=== PATIENT | female | born 1965 | race Caucasian/White ===

== ENCOUNTER → 2017-07-23 | Outpatient (CLI) | payer OTHER ==
--- NOTE | 2017-07-23 16:02 | KCIC ---
LUMBAR SPINE MIN 4V Clinical Indication: Severe lower back pain radiating down right leg x1 week. No known injury. Comparison: Two-view chest October 10, 2016. Findings: AP, bilateral oblique, lateral, and coned lumbosacral lateral views. Counting from above on two-view chest, there are 6 lumbar type vertebral bodies. The inferior most lumbar type vertebral body will be referred to as L6. There is no loss of vertebral body height. Visualized pelvic bones intact. There is motion artifact on the right oblique view. There is left pars defect of L6. Narrowing of L6/S1 disc space. There is grade 1 anterolisthesis of L6 on S1. The vertebral body alignment is otherwise maintained. IMPRESSION: 1. 6 lumbar type vertebral bodies. 2. Left pars defect of L6 and grade 1 anterolisthesis of L6 on S1. 3. No compression fracture. Electronically signed by: Gus Deleon MD (07/23/2017 3:58 PM) [id number]
== END | disposition home or self-care (01) ==
LOC: KCIC 15:09
PROVIDERS: ATTEND Physician Assistant
DX: M54.5 Low back pain (principal)
CPT/HCPCS: 72110

== ENCOUNTER → 2017-08-07 | Outpatient (CLI) | payer OTHER ==
--- NOTE | 2017-08-07 15:35 | KCIC ---
EXAMINATION: Magnetic resonance imaging (MRI) of the lumbar spine without contrast August 07, 2017 HISTORY: Low back pain. Possible radiculopathy. TECHNIQUE: Multiplanar multi-weighted MRI of the lumbar spine was performed without intravenous contrast using the standard lumbar spine protocol. Contrast information: None administered. COMPARISON: None available. FINDINGS: There is minimal anterolisthesis of L5 on S1. Osseous hemangiomas are identified at L2, L4 on L5. Vertebral bodies demonstrate normal signal intensity on all sequences. There are no compression fractures. The conus medullaris terminates at the level of T12-L1. The distal spinal cord signal intensity is normal. There is disc desiccation at L3-L4, L4-L5 and L5-S1. Annular fissures are identified at these levels. Limited views of the abdomen and pelvis show no soft tissue abnormality. The aorta is normal. L1-L2: The disc is normal in configuration. There is mild facet arthropathy. There is no neuroforaminal stenosis. There is no spinal canal stenosis. L2-L3: The disc is normal in configuration. There is mild facet arthropathy. There is no neuroforaminal stenosis. There is no spinal canal stenosis. L3-L4: There is mild circumferential disc bulge. There is moderate facet arthropathy. There is mild right and [id number] left neuroforaminal stenosis. There is no spinal canal stenosis. L4-L5: There is mild circumferential disc bulge with central disc protrusion. There is moderate facet arthropathy. There is moderate neuroforaminal stenosis. There is no spinal canal stenosis. L5-S1: Mild circumferential disc bulge. There is vacuum disc phenomenon at this level. There is severe facet arthropathy. There is kvzy-zw-ecuaefza neuroforaminal stenosis. There is no spinal canal stenosis. IMPRESSION: Mild degenerative changes of the lumbar spine as described in detail above. Electronically signed by: Blaire Calero MD (08/07/2017 3:31 PM) [facility]
== END | disposition home or self-care (01) ==
LOC: KCIC MRI 14:38
PROVIDERS: ATTEND Physician Assistant
DX: M54.16 Radiculopathy, lumbar region (principal); M47.896 Other spondylosis, lumbar region
CPT/HCPCS: 72148

== ENCOUNTER → 2018-03-11 | Outpatient (CLI) | payer OTHER | END | disposition home or self-care (01) | LOC: KCIC 14:26 | DX: M79.644 Pain in right finger(s) (principal); M79.89 Other specified soft tissue disorders | CPT/HCPCS: 73130 ==

== ENCOUNTER → 2018-06-16 | Outpatient (CLI) | payer OTHER ==
[~2018-06-16] MED LIST: NAPR-695 PO
--- NOTE | 2018-06-17 14:42 | KCIC ---
3d digital tomography Bilateral History: Routine screening Technique: Bilateral 3d digital tomographic views were obtained with [employer] and reviewed on a [employer] workstation. In addition, CAD - computer aided detection was utilized. Comparison: None. Findings: Breast Tissue Density C : The breast tissue is heterogeneously dense. Scattered fibroglandular elements may obscure underlying pathology. There are no suspicious masses, microcalcifications or areas of architectural distortion. Impression: No suspicious findings. BI-RADS Category 1: Negative. Normal interval followup. The patient will receive a letter with the results in the mail. Your mammogram demonstrates that you have dense breast tissue, which could hide abnormalities, and if you have other risk factors for breast cancer that have been identified, you might benefit from supplemental screening tests that may be suggested by your ordering physician. Dense breast tissue, in and of itself, is a relatively common condition. This information is not provided to cause undue concern, but rather to raise your awareness and to promote discussion with your physician regarding the presence of other risk factors, in addition to dense breast tissue. A report of your mammography results will be sent to you and your physician. You should contact your physician if you have any questions or concerns regarding this report. A mammogram does not have 100% sensitivity and therefore a negative imaging study should not delay further work up of a suspicious abnormality. Patient information is entered into the [facility] reminder system using [employer] with a target due date for the next screening mammogram. The patient will receive a reminder. "Our facility is accredited by the [employer] Mammography Program." Electronically signed by: Samuel Webb III, MD (06/17/2018 2:39 PM) [facility]
== END | disposition home or self-care (01) ==
LOC: KCIC MAMMO 15:41
PROVIDERS: ATTEND Obstetrics & Gynecology
DX: Z12.31 Encounter for screening mammogram for malignant neoplasm of breast (principal)
CPT/HCPCS: 77063; 77067

== ENCOUNTER → 2018-06-20 | Outpatient (CLI) | payer OTHER ==
[~2018-06-20] MED LIST changes: +GADOBUTROL 10 MMOL/10 ML VIAL IV ONE
--- NOTE | 2018-06-20 17:18 | KCIC ---
MRI of the abdomen without and with intravenous contrast (renal mass protocol MRI): History: Renal mass on outside imaging. Comparison: Report of right upper quadrant abdominal ultrasound at [facility] June 18, 2018. Direct images are not available. Technique: MRI of the abdomen was performed with attention to the kidneys using multiple sequences and planes both prior to and after intravenous gadolinium, 10 mL Gadavist. Sequences included a pre and post contrasted dynamic T1 weighted series. Findings: Visualized liver is unremarkable. No significant fatty liver disease is seen. Liver, pancreas, and bilateral adrenal glands are unremarkable. Gallbladder appears mildly distended. There may be small gallstones versus gallbladder sludge. Variant vascular anatomy is seen with separate ostia of the common hepatic artery and the splenic artery from the aorta. Superior mesenteric artery and inferior mesenteric arteries enhance. Each kidney appears to be serviced by single renal artery. Superior pole of the right kidney demonstrates a 2.0 cm complex exophytic mass. Precontrast images demonstrate majority of the lesion is increased in T2 and decreased in T1 signal. On the T2 images, multiple mildly thickened septations are seen. Postcontrast images demonstrate 3 mm thick enhancing. There are also enhancing internal septations with the thickest septation measuring 4 mm. Lesion has Bosniak 3 cystic appearance. The inferior right renal pole demonstrates a presence of 2 very small lesions each measure about 4 mm which appear to be nonenhancing and have in T2 signal; these are favored represent very small cysts. No definite left renal lesion is identified. Impression: 1. Superior pole the right kidney demonstrates a 2.0 cm exophytic lesion with mildly thickened enhancing wall and internal septations. This is considered Bosniak 3 cystic lesion. Recommend consultation with urology. 2. Less salient findings as described above. Electronically signed by: Theodore Byrd MD (06/20/2018 5:15 PM) [place] [id number]
== END | disposition home or self-care (01) ==
LOC: KCIC MRI 09:54
PROVIDERS: ATTEND Obstetrics & Gynecology
DX: N28.89 Other specified disorders of kidney and ureter (principal)
CPT/HCPCS: 74183; A9585

== ENCOUNTER → 2018-11-17 | Outpatient (CLI) | payer OTHER ==
[~2018-11-17] MED LIST changes: -GADOBUTROL 10 MMOL/10 ML VIAL IV ONE
--- NOTE | 2018-11-17 11:28 | KCIC ---
EXAM: Lumbar spine, 4 views; bilateral hips and pelvis, 5 views. HISTORY: Lower back pain and right hip pain. COMPARISON: 03/07/2015 and 08/07/2017. FINDINGS: Lumbar spine: Frontal, lateral, bilateral oblique and coned sacral views of the lumbar spine are obtained. There is grade 1 anterolisthesis with associated pars defects at L5-S1. There is endplate remodeling and facet arthropathy at the lumbosacral junction. There is also mild endplate remodeling and facet arthropathy at the mid lumbar levels. No fracture is seen. Bilateral hips and pelvis: A frontal view the pelvis and frontal and frog-leg views of both hips are obtained. There is no fracture, dislocation or subluxation. There is minimal second marginal right superior femoral head spurring. IMPRESSION: 1. Grade 1 anterolisthesis with associated pars defects and degenerative change at L5-S1. There is additional mild degenerative change at the remainder of the lumbar levels. 2. Suspected mild right hip osteoarthritis. Electronically signed by: Lakeshia Brower MD (11/17/2018 11:25 AM) [facility]
== END | disposition home or self-care (01) ==
LOC: KCIC 10:08
PROVIDERS: ATTEND Physician Assistant Medical
DX: M47.817 Spondylosis without myelopathy or radiculopathy, lumbosacral region (principal); M43.17 Spondylolisthesis, lumbosacral region; M12.88 Other specific arthropathies, not elsewhere classified, other specified site; M25.551 Pain in right hip
CPT/HCPCS: 72110; 73521

== ENCOUNTER 2018-12-21 16:17 | Emergency (ER) | payer OTHER ==
[~2018-12-21] VITALS: Ht 165.1 cm; Wt 108.9 kg
[2018-12-21] MEDS ORDERED: DIPHTH,PERTUSS(ACELL),TET TOX 0.5 ML DISP.SYRIN. VAX IM ONE (17:30)
[2018-12-21] MEDS ORDERED: HYDROcodone/APAP 5/325MG 1 TAB TABLET PO ONE (17:30)
[2018-12-21] MEDS ORDERED: ONDANSETRON ODT 4 MG TAB.RAPDIS. PO ONE (17:30)
[2018-12-21] MEDS ORDERED: LIDOCAINE 1%/EPI 1:100,000 20 ML VIAL. IJ ONE (17:30)
--- NOTE | 2018-12-21 17:40 | PHYS DOC ---
Past Medical History Past Medical History: No Pertinent History (HARVEY DUFF APRN) Additional Information: non-smoker Alcohol Use: Occasionally Drug Use: None (HARVEY DUFF APRN) Adult General Chief Complaint Chief Complaint: LACERATION/AVULSION HPI HPI Patient is 53-year-old female who presents after falling down approximately 6 stairs at her home prior to arrival. She describes the stairs as concreted with carpet. The patient fell with her arms outstretched bilaterally and hit her chin on the stairs. She has a laceration to the chin. She also complains that her teeth do not fit together correctly. She is also missing one of her teeth after the fall. Patient complains of left thumb pain and bilateral humerus pain. The patient denies hitting the back of her head and denies loss of consciousness. The patient describes her pain as 6 out of 10 and the pain is throbbing. (HARVEY DUFF APRN) Review of Systems Review of Systems Constitutional: Denies fever or chills [] Eyes: Denies change in visual acuity, redness, or eye pain [] HENT: Reports teeth do not fit together correctly and loss of a crown. [] Respiratory: Denies cough or shortness of breath [] Cardiovascular: Denies CP, or syncope. GI: Denies abdominal pain, nausea, vomiting, bloody stools or diarrhea [] : Denies dysuria or hematuria [] Musculoskeletal: Denies back pain or joint pain [] Integument: Denies rash or skin lesions [] Neurologic: Denies headache, focal weakness or sensory changes [] Endocrine: Denies polyuria or polydipsia [] Complete systems were reviewed and found to be within normal limits, except as documented in this note. (HARVEY DUFF APRN) Current Medications Current Medications Current Medications Medications (Trade) Dose Ordered Sig/Melanie Start Time Stop Time Status Last Admin Dose Admin Acetaminophen/ Hydrocodone Bitart (Lortab 5/325) 1 tab 1X ONCE 12/21/18 17:30 12/21/18 17:31 DC 12/21/18 17:29 1 TAB Cefazolin Sodium (Ancef) 1 gm Q8HRS 12/21/18 20:00 12/22/18 01:00 DC 12/21/18 19:20 1 GM Cefazolin Sodium 1 gm/Dextrose 50 ml @ 100 mls/hr Q8HRS 12/21/18 22:00 UNV Diphtheria/ Tetanus/Acell Pertussis (Boostrix) 0.5 ml ONCE ONCE 12/21/18 17:30 12/21/18 17:31 DC 12/21/18 17:31 0.5 ML Lidocaine/ Epinephrine (LIDOCAINE 1%-EPI 1:100,000 Multi-Dose) 20 ml 1X ONCE 12/21/18 17:30 12/21/18 17:31 DC Ondansetron HCl (Zofran Odt) 4 mg 1X ONCE 12/21/18 17:30 12/21/18 17:31 DC 12/21/18 17:29 4 MG Sodium Chloride 1,000 ml @ 1,000 mls/hr Q1H 12/21/18 19:30 12/21/18 20:29 DC 12/21/18 19:22 1,000 MLS/HR (HARVEY MERRITT DO) Allergies Allergies Allergies Coded Allergies Type Severity Reaction Last Updated Verified Penicillins Allergy Intermediate 06/20/18 Yes Sulfa (Sulfonamide Antibiotics) Allergy Intermediate 06/20/18 Yes (HARVEY MERRITT DO) Physical Exam Physical Exam Constitutional: Well developed, well nourished, no acute distress, non-toxic appearance. [] HENT: Normocephalic, traumatic, bilateral external ears normal, oropharynx moist, loss of crown on her upper incisors, laceration to chin, nose normal, tenderness to the left face[] Eyes: PERRLA, EOMI, conjunctiva normal, no discharge. [] Neck: Normal range of motion, no tenderness, no tenderness of c-spine or stepoffs, supple, no stridor. [] Cardiovascular:Heart rate regular rhythm, no murmur [] Lungs & Thorax: Bilateral breath sounds clear to auscultation [] Abdomen: Soft, no tenderness, no masses, no pulsatile masses. [] Skin: Warm, dry, no erythema, no rash. [] Back: No tenderness, no CVA tenderness. [] Extremities: Tenderness to bilateral upper extremities, no cyanosis, no clubbing, ROM intact, no edema. [] Neurologic: Alert and oriented X 3, normal motor function, normal sensory function, no focal deficits noted. [] Psychologic: Affect tearful, judgement normal, mood anxious. [] (HARVEY DUFF APRN) Physical Exam Constitutional: Well developed, well nourished, anxious, uncomfortable HENT: Normocephalic, right central incision avulsion noted, step off noted between left mandibular central and lateral incisor, 4cm laceration to chin Eyes: PERRL, EOMI, conjunctiva normal, no discharge. [] Neck: C-collar in place, no midline cervical spine tenderness, C-collar cleared after negative CT c spine with full ROM Cardiovascular: Heart rate regular rhythm, no murmur [] Lungs & Thorax: Bilateral breath sounds clear to auscultation [] Abdomen: Soft, no tenderness, pelvis stable and nontender Neurologic: Alert and oriented X 3, normal motor function, normal sensory function, no focal deficits noted. [] (HARVEY MERRITT DO) Current Patient Data Vital Signs Vital Signs Date Time Temp Pulse Resp B/P (MAP) Pulse Ox O2 Delivery O2 Flow Rate FiO2 12/21/18 20:15 72 16 148/72 (97) Room Air 12/21/18 17:29 98 12/21/18 16:27 98.4 98.4 (HARVEY MERRITT DO) Lab Values Laboratory Tests Test 12/21/18 19:00 12/21/18 19:20 Urine Collection Type Unknown Urine Color Yellow Urine Clarity Clear Urine pH 6.5 Urine Specific [place] 1.015 Urine Protein Negative mg/dL (NEG-TRACE) Urine Glucose (UA) Negative mg/dL (NEG) Urine Ketones (Stick) Negative mg/dL (NEG) Urine Blood Negative (NEG) Urine Nitrite Negative (NEG) Urine Bilirubin Negative (NEG) Urine Urobilinogen Dipstick 0.2 mg/dL (0.2 mg/dL) Urine Leukocyte Esterase Negative (NEG) Urine RBC Occ /HPF (0-2) Urine WBC Occ /HPF (0-4) Urine Squamous Epithelial Cells Few /LPF Urine Bacteria 0 /HPF (0-FEW) Urine Mucus Slight /LPF White Blood Count 10.5 x10^3/uL (4.0-11.0) Red Blood Count 4.78 x10^6/uL (3.50-5.40) Hemoglobin 14.3 g/dL (12.0-15.5) Hematocrit 42.8 % (36.0-47.0) Mean Corpuscular Volume 90 fL (79-100) Mean Corpuscular Hemoglobin 30 pg (25-35) Mean Corpuscular Hemoglobin Concent 34 g/dL (31-37) Red Cell Distribution Width 14.0 % (11.5-14.5) Platelet Count 274 x10^3/uL (140-400) Neutrophils (%) (Auto) 79 % (31-73) H Lymphocytes (%) (Auto) 16 % (24-48) L Monocytes (%) (Auto) 4 % (0-9) Eosinophils (%) (Auto) 1 % (0-3) Basophils (%) (Auto) 0 % (0-3) Neutrophils # (Auto) 8.2 x10^3uL (1.8-7.7) H Lymphocytes # (Auto) 1.6 x10^3/uL (1.0-4.8) Monocytes # (Auto) 0.4 x10^3/uL (0.0-1.1) Eosinophils # (Auto) 0.1 x10^3/uL (0.0-0.7) Basophils # (Auto) 0.0 x10^3/uL (0.0-0.2) Prothrombin Time 13.8 SEC (11.7-14.0) Prothrombin Time INR 1.1 (0.8-1.1) PTT 32 SEC (24-38) Sodium Level 138 mmol/L (136-145) Potassium Level 3.8 mmol/L (3.5-5.1) Chloride Level 98 mmol/L (98-107) Carbon Dioxide Level 30 mmol/L (21-32) Anion Gap 10 (6-14) Blood Urea Nitrogen 13 mg/dL (7-20) Creatinine 0.7 mg/dL (0.6-1.0) Estimated GFR (Cockcroft-Gault) 87.2 BUN/Creatinine Ratio 19 (6-20) Glucose Level 116 mg/dL (70-99) H Calcium Level 9.0 mg/dL (8.5-10.1) Total Bilirubin 0.3 mg/dL (0.2-1.0) Aspartate Amino Transferase (AST) 25 U/L (15-37) Alanine Aminotransferase (ALT) 33 U/L (14-59) Alkaline Phosphatase 89 U/L (46-116) Total Protein 7.9 g/dL (6.4-8.2) Albumin 4.2 g/dL (3.4-5.0) Albumin/Globulin Ratio 1.1 (1.0-1.7) Laboratory Tests 12/21/18 19:20 Laboratory Tests 12/21/18 19:20 (HARVEY MERRITT DO) Lab Values Laboratory Tests Test 12/21/18 19:00 12/21/18 19:20 Urine Collection Type Unknown Urine Color Yellow Urine Clarity Clear Urine pH 6.5 Urine Specific [place] 1.015 Urine Protein Negative mg/dL (NEG-TRACE) Urine Glucose (UA) Negative mg/dL (NEG) Urine Ketones (Stick) Negative mg/dL (NEG) Urine Blood Negative (NEG) Urine Nitrite Negative (NEG) Urine Bilirubin Negative (NEG) Urine Urobilinogen Dipstick 0.2 mg/dL (0.2 mg/dL) Urine Leukocyte Esterase Negative (NEG) Urine RBC Occ /HPF (0-2) Urine WBC Occ /HPF (0-4) Urine Squamous Epithelial Cells Few /LPF Urine Bacteria 0 /HPF (0-FEW) Urine Mucus Slight /LPF White Blood Count 10.5 x10^3/uL (4.0-11.0) Red Blood Count 4.78 x10^6/uL (3.50-5.40) Hemoglobin 14.3 g/dL (12.0-15.5) Hematocrit 42.8 % (36.0-47.0) Mean Corpuscular Volume 90 fL (79-100) Mean Corpuscular Hemoglobin 30 pg (25-35) Mean Corpuscular Hemoglobin Concent 34 g/dL (31-37) Red Cell Distribution Width 14.0 % (11.5-14.5) Platelet Count 274 x10^3/uL (140-400) Neutrophils (%) (Auto) 79 % (31-73) H Lymphocytes (%) (Auto) 16 % (24-48) L Monocytes (%) (Auto) 4 % (0-9) Eosinophils (%) (Auto) 1 % (0-3) Basophils (%) (Auto) 0 % (0-3) Neutrophils # (Auto) 8.2 x10^3uL (1.8-7.7) H Lymphocytes # (Auto) 1.6 x10^3/uL (1.0-4.8) Monocytes # (Auto) 0.4 x10^3/uL (0.0-1.1) Eosinophils # (Auto) 0.1 x10^3/uL (0.0-0.7) Basophils # (Auto) 0.0 x10^3/uL (0.0-0.2) Prothrombin Time 13.8 SEC (11.7-14.0) Prothrombin Time INR 1.1 (0.8-1.1) PTT 32 SEC (24-38) Sodium Level 138 mmol/L (136-145) Potassium Level 3.8 mmol/L (3.5-5.1) Chloride Level 98 mmol/L (98-107) Carbon Dioxide Level 30 mmol/L (21-32) Anion Gap 10 (6-14) Blood Urea Nitrogen 13 mg/dL (7-20) Creatinine 0.7 mg/dL (0.6-1.0) Estimated GFR (Cockcroft-Gault) 87.2 BUN/Creatinine Ratio 19 (6-20) Glucose Level 116 mg/dL (70-99) H Calcium Level 9.0 mg/dL (8.5-10.1) Total Bilirubin 0.3 mg/dL (0.2-1.0) Aspartate Amino Transferase (AST) 25 U/L (15-37) Alanine Aminotransferase (ALT) 33 U/L (14-59) Alkaline Phosphatase 89 U/L (46-116) Total Protein 7.9 g/dL (6.4-8.2) Albumin 4.2 g/dL (3.4-5.0) Albumin/Globulin Ratio 1.1 (1.0-1.7) Laboratory Tests 12/21/18 19:20 Laboratory Tests 12/21/18 19:20 (HARVEY DUFF APRN) EKG EKG [] (HARVEY DUFF APRN) Radiology/Procedures Radiology/Procedures []PATIENT: ZHOU JULIAN LACCOUNT: [id number]#: [id number] : 1965 LOCATION: ER AGE: 53 SEX: F EXAM STATUS: REG ER ORD. PHYSICIAN: HARVEY DUFF APRN REASON: fall PROCEDURE: CT HEAD AND CERVICAL SPINE WO Examination: CT MAXILLOFACIAL WO CONTRAST, CT HEAD AND CERVICAL SPINE WO History: PATIENT FELL FACE FIRST; PAIN TO JAW Comparison/Correlation: None Findings: Axial images of the head, Isovue structures, and cervical spine were obtained without contrast. Sagittal and coronal reformatted images of the maxillofacial structures and cervical spine were provided. Ventricles are normal size. No intracranial hemorrhage, midline shift, or mass effect. Right temporomandibular joint is unremarkable. Oblique fracture through the left lower mandibular neck is present. Lateral attenuation of the proximal fracture fragment is notable. The mandibular condyle is subluxed medially and inferiorly in relation to its normal location within the mandibular fossa. Fracture involves the mandible to the right of the midline extending between the right and left central incisor teeth. Displacement of the mandibular fracture fragments by the thickness of the cortex is noted. Mucosal thickening of the maxillary sinus ostium noted. No fluid levels within paranasal sinuses. Globes and optic nerves are unremarkable. Parotid and submandibular glands are unremarkable. Moderate C5-6 disc space narrowing is present. Mild spurring with bony encroachment into the neural foramina bilaterally at C5-C6 noted greater on the right. Soft tissues of the neck are unremarkable. Minimal anterolisthesis of C4 in relation to C5 is present and likely related to degenerative change. Facet joint degenerative changes are present primarily on the left at multiple levels. Lipoma is noted involving the left paraspinal musculature at the mid to lower cervical spine level measuring up to 2.6 cm x 3.6 cm in the axial plane. Mild tracheomalacia identified. Impression: Displaced angulated fracture of the left lower mandibular neck. Subluxed appearance of the left mandible condyle in relation to the mandibular condylar fossa. Fracture involves the mandible to the right of the midline extending between the right and left central incisor teeth. Minimal displacement. No intracranial hemorrhage. Degenerative changes cervical spine primarily at C5-6. No suspicious malalignment. PQRS Compliance Statement: One or more of the following individualized dose reduction techniques were utilized for this examination: 1. Automated exposure control 2. Adjustment of the mA and/or kV according to patient size 3. Use of iterative reconstruction technique Electronically signed by: Christian Camacho MD (12/21/2018 6:35 PM) [facility] Preliminary X-ray reads by Dr. Merritt (1900) Nondisplaced Proximal Phalanx Fracture in the Left Hand. Left and Right Humerus and Right Elbow had no acute fracture or dislocation (HARVEY DUFF APRN) Course & Med Decision Making Course & Med Decision Making Pertinent Labs and Imaging studies reviewed. (See chart for details) 17:15: Discussed with patient the need for CT scans before repairing the laceration of the chin. Will also evaluate extremity complaints with x-ray. Patient was placed in C-collar and will give oral pain medication. Patient and are agreeable to the plan. 18:30: Discussed with patient the displaced angulated fracture of the left lower mandibular neck and the need to transfer the patient to a facility with maxillofacial or ENT. The patient decided to go to [facility]. Call placed to Transfer center. Will order labs, npo, IV, Fluids, and Ancef. Patient and is agreeable to plan. 19:40: Talked to Dr. Tenorio at and agreed to take patient on the trauma floor. All questions were answered. (HARVEY DUFF APRN) Dragon Disclaimer Dragon Disclaimer This electronic medical record was generated, in whole or in part, using a voice recognition dictation system. (HARVEY DUFF APRN) Splinting Splinting : Location: Left hand distal phalanx thumb Pre-Made Type: metal Splint: finger splint Pre-Proc Neuro Vasc Exam: normal Post-Proc Neuro Vasc Exam: normal, unchanged from pre-exam (HARVEY MERRITT DO) Departure Departure Impression: Primary Impression: Mandible fracture Additional Impressions: Dislocated mandible Thumb fracture Disposition: 05 TRANSFER OTHER ([facility]) Condition: STABLE Referrals: ANTHONY ASHLEY MD (PCP) Attending Signature Attending Signature I have personally interviewed and examined the patient. All charts, labs, and imaging studies were reviewed. I agree with the PA/SUPPORT STAFF's findings, exam, and plan. (HARVEY MERRITT DO) Problem Qualifiers Primary Impression: Mandible fracture Encounter type: initial encounter Fracture type: open Mandible location: condylar process Laterality: left Qualified Codes: S02.612B - Fracture of condylar process of left mandible, initial encounter for open fracture Additional Impressions: Dislocated mandible Encounter type: initial encounter Qualified Codes: S03.00XA - Dislocation of jaw, unspecified side, initial encounter Thumb fracture Encounter type: initial encounter Fracture type: closed Phalanx: distal Fracture alignment: nondisplaced Laterality: left Qualified Codes: S62.525A - Nondisplaced fracture of distal phalanx of left thumb, initial encounter for closed fracture HARVEY DUFF APRN Dec 21, 2018 17:40 HARVEY MERRITT DO Dec 22, 2018 07:26
--- NOTE | 2018-12-21 18:38 | RAD ---
Examination: CT MAXILLOFACIAL WO CONTRAST, CT HEAD AND CERVICAL SPINE WO History: PATIENT FELL FACE FIRST; PAIN TO JAW Comparison/Correlation: None Findings: Axial images of the head, Isovue structures, and cervical spine were obtained without contrast. Sagittal and coronal reformatted images of the maxillofacial structures and cervical spine were provided. Ventricles are normal size. No intracranial hemorrhage, midline shift, or mass effect. Right temporomandibular joint is unremarkable. Oblique fracture through the left lower mandibular neck is present. Lateral attenuation of the proximal fracture fragment is notable. The mandibular condyle is subluxed medially and inferiorly in relation to its normal location within the mandibular fossa. Fracture involves the mandible to the right of the midline extending between the right and left central incisor teeth. Displacement of the mandibular fracture fragments by the thickness of the cortex is noted. Mucosal thickening of the maxillary sinus ostium noted. No fluid levels within paranasal sinuses. Globes and optic nerves are unremarkable. Parotid and submandibular glands are unremarkable. Moderate C5-6 disc space narrowing is present. Mild spurring with bony encroachment into the neural foramina bilaterally at C5-C6 noted greater on the right. Soft tissues of the neck are unremarkable. Minimal anterolisthesis of C4 in relation to C5 is present and likely related to degenerative change. Facet joint degenerative changes are present primarily on the left at multiple levels. Lipoma is noted involving the left paraspinal musculature at the mid to lower cervical spine level measuring up to 2.6 cm x 3.6 cm in the axial plane. Mild tracheomalacia identified. Impression: Displaced angulated fracture of the left lower mandibular neck. Subluxed appearance of the left mandible condyle in relation to the mandibular condylar fossa. Fracture involves the mandible to the right of the midline extending between the right and left central incisor teeth. Minimal displacement. No intracranial hemorrhage. Degenerative changes cervical spine primarily at C5-6. No suspicious malalignment. PQRS Compliance Statement: One or more of the following individualized dose reduction techniques were utilized for this examination: 1. Automated exposure control 2. Adjustment of the mA and/or kV according to patient size 3. Use of iterative reconstruction technique Electronically signed by: Christian Camacho MD (12/21/2018 6:35 PM) [id number]
[2018-12-21] MEDS ORDERED: IV NORMAL SALINE 1000ML BAG 1,000 ML IV SCH (19:30)
[2018-12-21 19:35] LABS: BASO % 0 % (0-3); EOS # 0.1 x10^3/uL (0.0-0.7); EOS % 1 % (0-3); HEMATOCRIT 42.8 % (36.0-47.0); HEMOGLOBIN 14.3 g/dL (12.0-15.5); LYMPH # 1.6 x10^3/uL (1.0-4.8); LYMPH % 16 % (24-48); MEAN CORPUSCULAR HEMOGLOBIN 30 pg (25-35); MEAN CORPUSCULAR HGB CONC 34 g/dL (31-37); MEAN CORPUSCULAR VOLUME 90 fL (79-100); MONO # 0.4 x10^3/uL (0.0-1.1); MONO % 4 % (0-9); NEUT # 8.2 x10^3uL (1.8-7.7); NEUT % 79 % (31-73); PLATELET COUNT 274 x10^3/uL (140-400); RED BLOOD COUNT 4.78 x10^6/uL (3.50-5.40); WHITE BLOOD COUNT 10.5 x10^3/uL (4.0-11.0)
[2018-12-21 19:36] LABS: BILIRUBIN,URINE NEGATIVE (NEG); CLARITY,URINE CLEAR; COLOR,URINE YELLOW; NITRITE,URINE NEGATIVE (NEG); PH,URINE 6.5; PROTEIN,URINE NEGATIVE (NEG-TRACE); UROBILINOGEN,URINE 0.2 mg/dL (0.2 mg/dL)
[2018-12-21 19:41] LABS: RBC,URINE OCC /HPF (0-2); WBC,URINE OCC /HPF (0-4)
[2018-12-21 19:42] LABS: BACTERIA,URINE 0 /HPF (0-FEW); SQUAMOUS EPITHELIAL CELL,UR FEW /LPF
[2018-12-21 19:45] LABS: PROTHROMBIN TIME PATIENT 13.8 SEC (11.7-14.0)
[2018-12-21 19:53] LABS: CREATININE 0.7 mg/dL (0.6-1.0); GFR 87.2; POTASSIUM 3.8 mmol/L (3.5-5.1)
[2018-12-21 19:58] LABS: ALBUMIN 4.2 g/dL (3.4-5.0); ALBUMIN/GLOBULIN RATIO 1.1 (1.0-1.7); TOTAL BILIRUBIN 0.3 mg/dL (0.2-1.0); TOTAL PROTEIN 7.9 g/dL (6.4-8.2)
[2018-12-21] MEDS ORDERED: ceFAZolin SODIUM IV Push 1 GM VIAL. IVP SCH (20:00)
[2018-12-21 20:15] VITALS: BP 148/72
[2018-12-21] MEDS ORDERED: ceFAZolin SODIUM 1 GM in IV DEXTROSE 5% 50 ML IV SCH (22:00)
--- NOTE | 2018-12-22 05:48 | RAD ---
Indication: Elbow pain after fall TECHNIQUE: 3 views of the right elbow COMPARISON: None Findings/ impression: No acute fracture or dislocation. No joint effusion. Electronically signed by: Brando Braga DO (12/22/2018 5:45 AM) [id number]
--- NOTE | 2018-12-22 06:46 | RAD ---
Indication: Fall. Pain TECHNIQUE: 2 views of the right humerus COMPARISON: None Findings/ impression: No acute fracture or dislocation. Electronically signed by: Brnado Braga DO (12/22/2018 6:43 AM) [id number]
--- NOTE | 2018-12-22 07:58 | RAD ---
Portable left humerus, 2 views, 12/21/2018: HISTORY: Fall No fracture is identified. The soft tissues are unremarkable. IMPRESSION: No significant left humeral abnormality is detected. Electronically signed by: Ino Gilliam MD (12/22/2018 7:55 AM) [facility]
--- NOTE | 2018-12-22 08:02 | RAD ---
Left hand, 3 views, 12/21/2018: HISTORY: Fall, first digit tenderness There is a nondisplaced fracture of the proximal and of the distal phalanx of the right thumb with intra-articular extension. No additional fracture or dislocation is identified. There are mild scattered degenerative changes. IMPRESSION: Nondisplaced fracture of the distal phalanx of the left thumb. Note: The findings were called to personnel the [facility] ER at 7:59 AM on 12/22/2018. Electronically signed by: Ino Gilliam MD (12/22/2018 7:59 AM) [facility] [place]
== END 2018-12-21 21:20 | disposition short-term general hospital (02) ==
LOC: ER 16:17
DX: S02.612B Fracture of condylar process of left mandible, initial encounter for open fracture (principal); S62.525A Nondisplaced fracture of distal phalanx of left thumb, initial encounter for closed fracture; M25.521 Pain in right elbow; M54.2 Cervicalgia; M79.642 Pain in left hand; M79.641 Pain in right hand; Z88.2 Allergy status to sulfonamides; Z88.0 Allergy status to penicillin; W10.8XXA Fall (on) (from) other stairs and steps, initial encounter; Y93.89 Activity, other specified; Y92.009 Unspecified place in unspecified non-institutional (private) residence as the place of occurrence of the external cause; Y99.8 Other external cause status
CPT/HCPCS: 29125; 36415; 70450; 70486; 72125; 73060; 73080; 73130; 80053; 81001; 85025; 85610; 85730; 90471; 90715; 96374; 99285; J0690; J7030; Q0162

== ENCOUNTER → 2019-06-17 | Outpatient (CLI) | payer OTHER ==
--- NOTE | 2019-06-17 12:34 | KCIC ---
EXAM: 1. Lumbar spine 5 views. 2. Frontal pelvis with two-view right hip. 3. Sacrum/coccyx 3 views. HISTORY: Low back, sacrococcygeal and right hip pain. COMPARISON: Today's MRI, 11/17/2018. FINDINGS: A minimal lumbar levocurvature is within normal limits. There is grade 1 anterolisthesis at L5-S1. Bilateral L5 pars interarticularis defects are suspected. Degenerative disc disease is mild to moderate at this level and minimal from L2 through L4. Facet osteoarthritis is at least moderate from L3 through S1. There is a small rim of osteophytes along the right femoral head laterally and anteriorly. Joint space appears preserved. Femoral head/neck offset is moderately decreased anteriorly. A synovial herniation pit is suspected along the left anterior head/neck junction. There is no clear sacral or coccygeal fracture. The sacroiliac joints are unremarkable for patient age. IMPRESSION: 1. Grade 1 anterolisthesis at L5-S1 from bilateral L5 pars interarticularis defects. Degenerative disc disease is moderate at this level and minimal from L2 through L4. 2. Mild right hip osteoarthritis. Bilateral femoral head/neck offset suggesting femoroacetabular impingement. Electronically signed by: Vinicio Chi MD (06/17/2019 12:31 PM) [facility]
--- NOTE | 2019-06-17 12:50 | KCIC ---
LUMBAR SPINE WO CONTRAST Date: 06/17/2019 11:00 AM Indication: Low back pain. Right lower extremity radiculopathy. Comparison: 08/07/2017. Technique: Multi-planar multi-weighted magnetic resonance imaging of the lumbar spine was performed without intravenous contrast using the standard lumbar spine protocol. FINDINGS: The lumbar spine is normally aligned. No acute fracture. Mild multilevel degenerative disc desiccation and disc height loss. Scattered vertebral body hemangiomas. The conus terminates at a normal level. No abnormal signal is seen within the visualized distal spinal cord. No clumping of intrathecal nerve roots. No soft tissue abnormality in the visualized abdomen or pelvis. T12-L1: No significant spinal stenosis or neural foraminal narrowing. L1-L2: Mild facet arthropathy. No significant spinal stenosis or neural foraminal narrowing. L2-L3: Mild facet arthropathy. No significant spinal stenosis or neural foraminal narrowing. L3-L4: Disc bulge. Mild facet arthropathy. No significant spinal stenosis. Mild right and mild to moderate left neural foraminal narrowing. L4-L5: Disc bulge. Mild to moderate facet arthropathy. No significant spinal stenosis. Mild to moderate bilateral neural foraminal narrowing. L5-S1: Disc bulge with right foraminal/far lateral protrusion which abuts the exiting right L5 nerve root. Mild facet arthropathy. No significant spinal stenosis. Moderate to severe neural foraminal narrowing. IMPRESSION: Lumbar spondylosis, worst at L5-S1. Of note, a disc protrusion abuts the exiting right L5 nerve root. Correlate for right L5 radiculopathy. Electronically signed by: Christopher Chang MD (06/17/2019 12:47 PM) [id number]
== END | disposition home or self-care (01) ==
LOC: KCIC MRI 10:39
PROVIDERS: ATTEND Physician Assistant Medical
DX: M47.817 Spondylosis without myelopathy or radiculopathy, lumbosacral region (principal); M43.17 Spondylolisthesis, lumbosacral region; M51.26 Other intervertebral disc displacement, lumbar region; M25.78 Osteophyte, vertebrae; M16.11 Unilateral primary osteoarthritis, right hip; M54.41 Lumbago with sciatica, right side
CPT/HCPCS: 72110; 72148; 72220; 73502

== ENCOUNTER → 2019-06-29 | Outpatient (CLI) | payer OTHER ==
--- NOTE | 2019-06-29 12:47 | KCIC ---
EXAM: Left hand, 3 views HISTORY: Pain. COMPARISON: None. FINDINGS: 3 views of the left hand are obtained. There is no fracture, dislocation or subluxation. IMPRESSION: No acute osseous finding. Electronically signed by: Lakeshia Brower MD (06/29/2019 12:44 PM) [place] [id number]
== END ==
LOC: KCIC 10:26
PROVIDERS: ATTEND Physician Assistant Medical
DX: M79.642 Pain in left hand (principal)
CPT/HCPCS: 73130

== ENCOUNTER → 2019-07-31 | Outpatient (CLI) | payer OTHER | LOC: LAB 09:21 | PROVIDERS: ATTEND Obstetrics & Gynecology | DX: Z51.81 Encounter for therapeutic drug level monitoring (principal) | CPT/HCPCS: 84402; 84403 ==

== ENCOUNTER → 2020-04-05 | Outpatient (CLI) | payer OTHER ==
[~2020-04-05] MED LIST changes: +BUPIVACAINE MPF 0.5% 10 ML VIAL for KCIC. IM ONE; +IOHEXOL 300 MG/ML 50 ML VIAL. INT ART ONE; +LIDOCAINE 1% Multi-Dose 20 ML VIAL. ID ONE; +methylPREDNISolone ACETATE 40 MG/ML VIAL. INT ART ONE
--- NOTE | 2020-04-05 17:29 | KCIC ---
PROCEDURE: Right hip steroid injection under fluoroscopic guidance INDICATION: Chronic right hip pain. CONTRAST: Approximately 2 cc Omnipaque 300. FINDINGS: The risks, benefits and alternatives to the procedure were discussed with the patient. A timeout was performed to confirm the patient's identity and laterality of the injection. Utilizing sterile technique, fluoroscopic guidance and local anesthesia with 1% lidocaine, the right hip joint was accessed utilizing a 5 inch, 22-gauge spinal needle. A small amount contrast was used to confirm the intra-articular location of the needle tip. Subsequently, a mixture of 2 cc bupivacaine and 2 cc (80 mg) Depo-Medrol was injected. There were no immediate complications. Fluoroscopy time: 20 seconds Number of images obtained: 1 Impression: Technically successful right hip steroid injection under fluoroscopic guidance. Electronically signed by: TYRELL HEREDIA MD (04/05/2020 5:25 PM) [id number]
== END | disposition home or self-care (01) ==
LOC: KCIC 14:41
PROVIDERS: ATTEND Orthopaedic Surgery Sports Medicine
DX: M16.11 Unilateral primary osteoarthritis, right hip (principal); Z88.0 Allergy status to penicillin; Z88.2 Allergy status to sulfonamides
CPT/HCPCS: 20610; 77002; J1030; J3490; Q9967

== ENCOUNTER → 2020-07-18 | Outpatient (CLI) | payer OTHER ==
[~2020-07-18] MED LIST changes: -BUPIVACAINE MPF 0.5% 10 ML VIAL for KCIC. IM ONE; +BUPIVACAINE MPF 0.5% 10 ML VIAL. IJ ONE; +CONTRAST GIVEN. MC PRN
--- NOTE | 2020-07-19 08:32 | KCIC ---
PROCEDURE: Right hip steroid injection under fluoroscopic guidance INDICATION: Chronic right hip pain. Osteoarthritis. CONTRAST: Approximately 2 cc Omnipaque 300 FINDINGS: The risks, benefits and alternatives to the procedure were discussed with the patient. A timeout was performed to confirm the patient's identity and laterality of the injection. Utilizing sterile technique, fluoroscopic guidance and local anesthesia with 1% lidocaine, the right hip joint was accessed utilizing a 5 inch 22-gauge spinal needle. A small amount contrast was used to confirm the intra-articular location of the needle tip. Subsequently, a mixture containing 80 mg Depo-Medrol and 2 cc bupivacaine was injected. There were no immediate complications. Fluoroscopy time: 20 seconds Number of images obtained: 2 Impression: Technically successful right hip steroid injection under fluoroscopic guidance. Electronically signed by: TYRELL HEREDIA MD (07/19/2020 8:29 AM) [id number]
== END | disposition home or self-care (01) ==
LOC: KCIC 10:18
PROVIDERS: ATTEND Physician Assistant
DX: M16.11 Unilateral primary osteoarthritis, right hip (principal); G89.29 Other chronic pain
CPT/HCPCS: 20610; 77002; J1030; J3490; Q9967

== ENCOUNTER → 2021-02-02 | Outpatient (CLI) | payer OTHER ==
[~2021-02-02] MED LIST changes: -BUPIVACAINE MPF 0.5% 10 ML VIAL. IJ ONE; -CONTRAST GIVEN. MC PRN; -IOHEXOL 300 MG/ML 50 ML VIAL. INT ART ONE; -LIDOCAINE 1% Multi-Dose 20 ML VIAL. ID ONE; -methylPREDNISolone ACETATE 40 MG/ML VIAL. INT ART ONE
--- NOTE | 2021-02-02 16:52 | KCIC ---
Bilateral digital screening mammograms with 3-D tomosynthesis: Reason for examination: Routine screening. Comparison is made to previous study dated 06/16/2018. Bilateral mammograms in CC and oblique projections were obtained with 2-D imaging and 3-D tomosynthes is imaging on a Siemens Inspiration unit and reviewed on the workstation. Interpretation was made wit h the benefit of CAD. The skin and nipples show no abnormalities. No abnormal axillary lymph nodes are seen. The breast par enchyma shows scattered fatty and fibroglandular density. (Breast density: Category B.) There are sma ll nodules consistent with intramammary lymph nodes. There are no other dominant masses, suspicious c alcifications or architectural distortion. Impression: No evidence of malignancy. Recommend routine screening. BI-RAD Category 2: Benign. "Our facility is accredited by the [employer] Mammography Program." This patient's information has been entered into a reminder system for the patient to be notified wit h the results of her examination and a target date for the next mammogram. Electronically signed by: Chani Hernandez MD (02/02/2021 4:49 PM) [id number]
== END ==
LOC: KCIC MAMMO 14:21
PROVIDERS: ATTEND Obstetrics & Gynecology
DX: Z12.31 Encounter for screening mammogram for malignant neoplasm of breast (principal)
CPT/HCPCS: 77063; 77067